=== PATIENT | female | born 1975 | race Caucasian/White ===

== ENCOUNTER 2018-11-01 17:17 | Emergency (ER) | payer MEDICAID ==
[~2018-11-01] VITALS: Ht 157.5 cm; Wt 87.0 kg
[~2018-11-01 17:17] MED LIST: PREN-88 PO
[2018-11-01 17:39] VITALS: BP 206/98
== END 2018-11-02 00:08 | disposition left against medical advice (07) ==
LOC: ER 19:59
DX: Z53.21 Procedure and treatment not carried out due to patient leaving prior to being seen by health care provider (principal)